=== PATIENT | male | born 2000 | race Asian ===

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

== ENCOUNTER 2023-01-29 13:24 | Emergency (ER) | payer OTHER, BC ==
[2023-01-29 13:50] VITALS: BP 122/66; PULSE 86; RESP 20; TEMP 97.8; BMI 27.8
[2023-01-29] MEDS ORDERED: ACETAMINOPHEN 325 MG TABLET (FP) PO ONE (15:29)
[2023-01-29] MEDS ORDERED: ACETAMINOPHEN 325 MG TABLET (FP) ONE (15:38)
== END 2023-01-29 15:45 | disposition home or self-care (01) ==
LOC: JERFT 13:24
DX: M25.511 Pain in right shoulder (principal); V89.2XXA Person injured in unspecified motor-vehicle accident, traffic, initial encounter; Y92.9 Unspecified place or not applicable
CPT/HCPCS: 73030-TC-RT-FY; 99283-25

== ENCOUNTER 2023-06-14 04:44 | Day surgery (SDC) | payer BC ==
[2023-06-13 08:28] VITALS: BMI 28.1
[2023-06-14] MEDS ORDERED: LIDOCAINE HCL/PF 2% SDV 5ML VIAL ONE (15:09)
[2023-06-14] MEDS ORDERED: MIDAZOLAM HCL 2 MG/2 ML SINGLE DOSE VIAL ONE (15:09)
[2023-06-14] MEDS ORDERED: PROPOFOL 20 ML ONE (15:09)
[2023-06-14] MEDS ORDERED: ONDANSETRON 4 MG/2 ML VIAL ONE (15:09)
[2023-06-14] MEDS ORDERED: DEXAMETHASONE SOD PHOSPHATE 4 MG/1 ML VIAL ONE (15:09)
[2023-06-14] MEDS ORDERED: ceFAZolin SODIUM 1 GM VIAL ONE (15:31)
[2023-06-14] MEDS ORDERED: LIDOCAINE HCL 1%, 10 MG/ML (20ML VIAL) ONE (15:33)
[2023-06-14] MEDS ORDERED: BUPIVACAINE HCL/PF 0.5% (5MG/ML) 10 ML VIAL ONE (15:33)
[2023-06-14] MEDS: ceFAZolin SODIUM 1 GM VIAL IVPB ONE (15:40)
[2023-06-14] MEDS: LIDOCAINE HCL 1%, 10 MG/ML (20ML VIAL) NR ONE ×2 (15:45→16:16)
[2023-06-14] MEDS: BUPIVACAINE HCL/PF 0.5% (5MG/ML) 10 ML VIAL IJ ONE ×2 (15:46→16:16)
[2023-06-14] MEDS ORDERED: oxyCODONE HCL 5 MG TABLET PO PRN ×2 (16:46)
[2023-06-14] MEDS ORDERED: ONDANSETRON 4 MG/2 ML VIAL IVPUSH PRN (16:46)
[2023-06-14] MEDS ORDERED: PROMETHAZINE HCL 25 MG/1 ML VIAL IVPB PRN (16:46)
[2023-06-14] MEDS ORDERED: LACTATED RINGERS SOLUTION 1,000 ML IV SCH (17:00)
[2023-06-14] MEDS: ACETAMINOPHEN 1000 MG/100 ML BAG IVPB ONE (17:00)
[2023-06-14 17:05] VITALS: TEMP 97.8
[2023-06-14] MEDS ORDERED: ACETAMINOPHEN INJECTION 100 ML IVPB ONE (17:07)
[2023-06-14 18:55] VITALS: RESP 18
[2023-06-14 18:58] VITALS: BP 123/62; PULSE 72
== END 2023-06-14 18:43 | disposition home or self-care (01) ==
LOC: JASU-SURG 04:44
PROVIDERS: ATTEND Urology
PROC: 0VBG0ZZ Excision of Left Spermatic Cord, Open Approach (ICD-10-PCS; principal; 2023-06-14 15:30)
DX: I86.1 Scrotal varices (principal)
CPT/HCPCS: 94760; J0131